=== PATIENT | female | born 1995 | race Caucasian/White ===

== ENCOUNTER 2021-02-26 21:00 | Inpatient (IN) | payer OTHER, SELFPAY ==
[2021-02-26] VITALS (16 sets, daily range): BP systolic 125–150; BP diastolic 61–88; PULSE 62–101; RESP 15–16; O2SAT 99–100
[2021-02-26 21:08] LABS: Basophils % 0.3 %; Eosinophils % 0.2 %; Hematocrit 45.3 % (37.0-47.0); Hemoglobin 15.7 g/dL (11.5-15.3); Lymphocytes # 0.6 10^3/uL (0.8-4.8); Lymphocytes % 5.7 %; Mean Corpuscular HGB Conc 34.7 g/dL (30.0-36.0); Mean Corpuscular Hemoglobin 30.1 pg (28.0-34.0); Mean Corpuscular Volume 86.8 fl (81-99); Mean Platelet Volume 12.3 fL (7.4-10.4); Monocytes # 0.5 10^3/uL (0.2-0.9); Monocytes % 4.7 %; Neutrophils # 9.09 10^3/uL (1.8-7.7); Neutrophils % 88.5 %; Nucleated Red Blood Cells % 0 %; Platelet Count 127 10^3/cmm (130-400); Red Blood Count 5.22 10^6/uL (4.1-5.3); White Blood Count 10.3 10^3/uL (4.0-10.0)
--- NOTE | 2021-02-26 21:55 | P.ANESASSM_ITS ---
Pre-Anesthetic Assessment Pre-Anesthetic Assessment: Height/Weight: Pulse BP 64 150/72 02/26/21 21:06 02/26/21 21:06 Was Beta Dontrell taken within 24 hours: N/A Was Clonidine taken within 24 hours: N/A Social: Social History: No alcohol and No tobacco Exam: Pre-Anes Outpt Exam: alert, oriented x 3, clear to auscultation bilatera lly and regular rate & rhythm Airway: Submandibular: WNL Cervical ROM: WNL MP: 2 Dentition: Full Anesthetic Plan: ASA status: 2E Anesthesia: General (RSI) Other: Bleeding, abruption? stat C/S Risk of > 500 ml blood loss (7ml/kg in children): Yes, adequate IV access and fluids planned Data Anesthesia CBC & Chem 7: 02/26/21 20:50 Other Labs: Laboratory Results - last 48 hr 02/26/21 02/26/21 20:50 20:50 WBC 10.3 H RBC 5.22 Hgb 15.7 H Hct 45.3 MCV 86.8 MCH 30.1 MCHC 34.7 RDW 13.0 Plt Count 127 L MPV 12.3 H Neut % (Auto) 88.5 Lymph % (Auto) 5.7 [place] % (Auto) 4.7 Eos % (Auto) 0.2 Baso % (Auto) 0.3 Neut # (Auto) 9.09 H Lymph # (Auto) 0.6 L [place] # (Auto) 0.5 Eos # (Auto) 0.0 Baso # (Auto) 0.0 Nucleated RBC % (auto) 0 Nucleated RBCs # 0.0 Blood Type A Positive Rho(D) Type Positive Cardiac Studies: No Data to Display
--- NOTE | 2021-02-26 22:02 | PM.OBGYHP ---
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 Her EDC was 03/13/2021. She has been followed through this by a electric operator. Her blood type is A positive with negative antibodies. She is also immune to Rubella and has had no problems with this . She began magalys at around 9AM this morning and began having vaginal bleeding since around 2PM this afternoon. The bleeding worsened and she was sent to the [facility] OB department. She arrived and was placed on the monitor at around 850PM. She continued to bleed and this physician was called. She then had several late decelerations and a decision was made to proceed with a section. Dr. Moyer was consulted for this. Review of Systems Const: Reports: change in appetite; Denies: fever(s) Eyes: Denies: change in vision ENMT: Denies: nasal congestion Card: Denies: chest pain, palpitations or edema Resp: Denies: dyspnea or productive cough GI: Reports: abdominal pain (ssuprapubic pain and contractions.) and vomiting (at around 7PM after drinking broth.); Denies: diarrhea or constipation : Reports: vaginal bleeding (moderate with cramps.) Musc: Reports: back pain Skin/Breast: Denies: rash Neuro: Denies: headache(s) or weakness in extremities Psych: Reports: anxiety; Denies: depression Beto/Lymph: Denies: easy bruising Vitals/I&O/Wt Last Vital Signs Pulse 64 02/26/21 21:06 BP 150/72 02/26/21 21:06 Physical Exam Const: COMMON NORMALS: no acute distress (obviously in pain.) GENERAL APPEARANCE: cooperative and ill appearing HENMT: COMMON NORMALS: moist oral mucous membranes Resp: COMMON NORMALS: normal respiratory effort, No retractions, No use of accessory muscles and clear to auscultation bilaterally Cardio: COMMON NORMALS: regular rate, regular rhythm and No murmurs present (Cardio) GI: COMMON NORMALS: Soft to palpation PALPATION: Yes Tenderness to palpation present (GI) (suprapubic pain ) : COMMON NORMALS: No normal external appearance (vaginal bleeding) Back/Pelvis: COMMON NORMALS: no CVA tenderness Extremity: COMMON NORMALS: normal to inspection, capillary refill normal, no clubbing, cyanosis or edema and no calf tenderness Neuro: SENSORIUM/ORIENTATION: Yes alert, Yes oriented to person and Yes oriented to place Psych: APPEARANCE: Yes grossly normal MOOD & AFFECT: Yes anxious Skin: COMMON NORMALS: no rashes or lesions noted Data : 02/26/21 20:50 A&P Assessment and plan (1) 37 or more weeks gestation of : plan probable due to possible abruption at near term. Status: Acute (2) Vaginal bleeding during , antepartum: suspect abruption. Status: Acute (3) Non-reassuring electronic monitoring tracing: Plan Cesarian section. Dr. Moyer consulted. Status: Acute Attestations Medical Necessity Statement*: This patient has a near term with probable abruption. She requires hospitalization with probable section and at least 2 midnight hospital stay. Time Spent in Patient Care: 16 - 35 minutes Coding Level of Care Code Acute Doors Prefitter for Chg Fwd Diagnoses 37 or more weeks gestation of Vaginal bleeding during , antepartum O46.90 Non-reassuring electronic monitoring tracing O36.8390
--- NOTE | 2021-02-26 22:32 | PM.OP ---
Operative Report Date of procedure: February 26, 2021 Pre-op Diagnosis: 25-year-old 1 female presenting with vaginal bleeding and nonreassu Post-op diagnosis: same Post-op Findings: Old clot in uterus consistent with abruption Procedure Done: Stat lower transverse section. Specimens removed/disposition: 1. Male with Apgars of 8 and 9 and weight of 7 pounds 2 ounces 2. Placenta with a three-vessel cord delivered intact. Old clots were noted on the placenta Pathology: none sent Surgeon: Graeme Moyer Sap Administrator: Bong Osorio Anesthesia: General Estimated blood loss (mL): 800 Condition: stable Disposition: floor (Obstetric) Procedure: The patient was brought back to the operating room where she was prepped and draped in usual sterile fashion. She was then placed under general anesthesia. A lower transverse skin incision was then made with a #10 blade. I then dissected down to the underlying subcutaneous tissue until arriving at the prerectal fascia. The fascia was then nicked with the scalpel bilaterally. The fascial incisions were then carried laterally with Guillen scissors. Attention was then turned to the superior aspect of the incision which was grasped with kochers and tented up away from the underlying rectus abdominis muscles. The muscles were then dissected away from the fascia manually, and later with Guillen scissors. Attention was then turned to the inferior aspect of the incision, and the fascia was dissected away from the underlying muscle in similar fashion. The rectus abdominis muscles were then spread manually. The peritoneum was entered manually. Excellent visualization of the uterus was noted. A lower transverse uterine incision was then made with a #10 blade. Upon arriving at the intrauterine cavity, the uterine incision was then extended manually. Multiple large dark blood clots were removed. The amniotic sac was ruptured with Allises and was noted to have clear fluid. The infant was noted to be in vertex position. The baby was delivered without difficulty. . There was no meconium. There was no nuchal cord. The cord was cut and clamped. The baby was then handed to the waiting nurse. The placenta was removed intact. The uterus was externalized. The intrauterine cavity was cleansed of any remaining debris. The uterine incision was reapproximated in 2 layers. The first layer was performed with 0 Vicryl in a running locked stitch. The second layer was an imbricating stitch also using 0 Vicryl. The uterus was replaced into the abdomen. The peritoneum was then irrigated with warm saline. I reexamined the uterine incision and found it to be hemostatic. The rectus abdominis muscles were then reapproximated using 0 Vicryl in a running stitch. The fascia was then reapproximated using 0 Vicryl in running stitch. The subcutaneous tissue was then reapproximated in a running stitch with 0 Vicryl. The skin was reapproximated using lexus. A sterile dressing was placed. All counts were correct x2. Both the mother and baby were in stable condition. Associated Problem List Diagnoses (1) Non-reassuring electronic monitoring tracing: (2) Vaginal bleeding during , antepartum: (3) 37 or more weeks gestation of : (4) Status post :
[2021-02-26] MEDS: morphine 4 mg/mL SDV 1 mL IVP (23:44)
[2021-02-26] MEDS: ketorolac 30 mg/mL INJ IVP (23:44)
[2021-02-27] VITALS (22 sets, daily range): BP systolic 101–127; BP diastolic 58–82; PULSE 68–89; RESP 15–16; TEMP 36.4–36.6; O2SAT 97–100; BMI 26.1
[2021-02-27] MEDS: dextrose 5%-lactated ringers 1,000 ML 125 ML IV ×2 (02:42→11:02)
[2021-02-27] MEDS: morphine 4 mg/mL SDV 1 mL IVP (03:30)
[2021-02-27] MEDS: lanolin oint 7 gm 1 APPLIC TOPICAL (03:31)
[2021-02-27] MEDS: ketorolac 30 mg/mL INJ IVP ×2 (06:15→11:02)
--- NOTE | 2021-02-27 07:03 | PM.OBGYPN ---
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 Her pain is well controlled. Her bleeding is minimal. Vitals/I&O/Wt Last Vital Signs Temp 97.9 F 02/27/21 04:13 Pulse 76 02/27/21 04:13 Resp 15 02/27/21 04:13 BP 116/68 02/27/21 04:13 Pulse Ox 100 02/26/21 22:50 02/26/21 02/27/21 02/27/21 22:59 06:59 14:59 Intake Total 1800 / 1800 Output Total 1550 / 1550 Balance 250 / 250 Weight last 48 hrs Weight 152 lb Physical Exam Narrative: EXAM NARRATIVE: She is in no acute distress Lungs are clear auscultation bilaterally Her heart has a regular rate and rhythm Her fundus is below the umbilicus and firm Her dressing is clean, dry and intact Her extremities have trace edema Urinary Catheter Management^: Mahmood Latex: Cath Placed During This Visit: yes Urinary Catheter Date of Insertion: 02/26/21 Urinary Catheter Time of Insertion: 21:20 Data : 02/26/21 20:50 A&P Assessment and plan (1) Status post : The patient appears to be doing well post . She is breast-feeding well. Her bleeding is within normal limits. Her pain is well controlled. I anticipate she will be discharged home tomorrow. Status: Acute Attestations Medical Necessity Statement*: Routine post care Coding Level of Care Code Acute Knife Machine Operator for Chg Fwd Diagnoses Status post Z98.891
[2021-02-27] MEDS: HYDROcodone-acetaminophen 5-325 mg Tablet PO (08:44)
[2021-02-27] MEDS: prenatal vitamin Capsule 1 CAP PO (08:45)
[2021-02-27] MEDS: docusate sodium 100 mg Capsule PO ×2 (08:45→18:17)
--- NOTE | 2021-02-27 08:53 | ANE.PACU2 ---
Inpatient post-anesthesia follow up: Airway intact: Yes Vital signs: Temperature 97.9 F Pulse Rate 76 Respiratory Rate 15 Blood Pressure 116/68 Pulse Oximetry 100 Oxygen Delivery Me thod Room Air Oxygen Flow Rate Fraction of Inspir ed Oxygen Hydration adequate: Yes Nausea and vomiting: No Pain level: 2 Mental status: Baseline
[2021-02-27 10:28] LABS: Hematocrit 31.8 % (37.0-47.0); Mean Corpuscular HGB Conc 34.6 g/dL (30.0-36.0); Mean Corpuscular Hemoglobin 30.2 pg (28.0-34.0); Mean Corpuscular Volume 87.4 fl (81-99); Mean Platelet Volume 12.1 fL (7.4-10.4); Platelet Count 71 10^3/cmm (130-400); Red Blood Count 3.64 10^6/uL (4.1-5.3); Red Cell Distribution Width 13.2 % (12.1-15.1); White Blood Count 11.8 10^3/uL (4.0-10.0)
--- NOTE | 2021-02-27 10:54 | PC.NURSE ---
Call to Dr. Moyer to report pt lab result. Plt count dropped from 127 to 71, hemaglobin dropped from 15.7 to 11.0. Received orders to repeat CBC at 1600.
--- NOTE | 2021-02-27 15:26 | PC.NURSE ---
Pt ambulated one lap around unit. Pt tolerated well.
[2021-02-27 16:20] LABS: Basophils % 0.2 %; Hemoglobin 11.5 g/dL (11.5-15.3); Lymphocytes # 0.9 10^3/uL (0.8-4.8); Lymphocytes % 7.6 %; Mean Corpuscular HGB Conc 34.8 g/dL (30.0-36.0); Mean Corpuscular Hemoglobin 30.4 pg (28.0-34.0); Mean Corpuscular Volume 87.3 fl (81-99); Mean Platelet Volume 12.6 fL (7.4-10.4); Monocytes # 0.6 10^3/uL (0.2-0.9); Monocytes % 4.5 %; Neutrophils # 10.62 10^3/uL (1.8-7.7); Neutrophils % 87.2 %; Nucleated Red Blood Cells % 0 %; Platelet Count 101 10^3/cmm (130-400); Red Blood Count 3.78 10^6/uL (4.1-5.3); Red Cell Distribution Width 13.4 % (12.1-15.1); White Blood Count 12.2 10^3/uL (4.0-10.0)
--- NOTE | 2021-02-27 16:53 | PC.NURSE ---
Call to Dr. Moyer to report CBC results. Plt count went from 71 to 101 and hgb went from 11.0 to 11.5. No new orders received.
[2021-02-27] MEDS: ibuprofen 800 mg tablet PO (21:27)
[2021-02-28] MEDS: acetaminophen 325 mg Tablet 650 MG PO (00:25)
[2021-02-28 04:00] VITALS: BP 104/65; PULSE 71; TEMP 36.6; O2SAT 99
--- NOTE | 2021-02-28 08:00 | PM.OBGYDC ---
Discharge Providers SENIOR ELECTRONICS TECHNICIAN Date of Admission: 02/26/21 21:00 Date of Discharge: 02/28/21 Attending Provider at Admission: Bong Osorio MD Attending Provider at Discharge: Bong Osorio MD Primary Care Provider: Cachorro Saldana Diagnoses at Discharge Discharge Diagnosis (1) Status post : Status: Acute Reason for Visit Reason for Visit: BLEEDING Hospital Course Hospital Course The patient had in labor under the care of a beamer hand At home. She began having large amounts of vaginal bleeding. This lasted for several hours. She was brought to the OB department where she was found to have nonreassuring heart tones. An emergency was performed. The patient's case was were largely unremarkable. Her platelets did drop down to 70,000, but later rebounded to over 100,000. Her pain was well controlled. Her bleeding was within normal limits. She is having difficulty with breast-feeding. legal document specialist has been assisting her. Information Peripartum Data: Delivery Method: Physical Exam Narrative: EXAM NARRATIVE: She is in no acute distress Lungs are clear auscultation bilaterally Her heart has a regular rate and rhythm Her fundus is below the umbilicus and firm Her dressing is clean, dry and intact Her extremities have trace edema Urinary Catheter Management^: Mahmood Latex: Cath Placed During This Visit: yes, but has since been removed by the nurse Reason for Continuing Indwelling Catheter: Decision to DC Catheter Urinary Catheter Date of Insertion: 02/26/21 Urinary Catheter Time of Insertion: 21:20 Date Urinary Catheter Removed: 02/27/21 Time Urinary Catheter Discontinued: 15:30 Discharge Data Data Completed and Pending: Labs from last 24 hours 02/27/21 02/27/21 16:01 09:55 WBC 12.2 H 11.8 H RBC 3.78 L 3.64 L Hgb 11.5 11.0 L Hct 33.0 L 31.8 L MCV 87.3 87.4 MCH 30.4 30.2 MCHC 34.8 34.6 RDW 13.4 13.2 Plt Count 101 L D 71 L D MPV 12.6 H 12.1 H Neut % (Auto) 87.2 Lymph % (Auto) 7.6 [place] % (Auto) 4.5 Eos % (Auto) 0.0 Baso % (Auto) 0.2 Neut # (Auto) 10.62 H Lymph # (Auto) 0.9 [place] # (Auto) 0.6 Eos # (Auto) 0.0 Baso # (Auto) 0.0 Nucleated RBC % (a uto) 0 Nucleated RBCs # 0.0 Vitals: Last Vital Signs Temp 97.9 F 02/28/21 04:00 Pulse 71 02/28/21 04:00 Resp 16 02/27/21 16:03 BP 104/65 02/28/21 04:00 Pulse Ox 99 02/28/21 04:00 Discharge Plan Discharge Patient Disposition: Home Condition: Stable Prescriptions: New ibuprofen 800 mg Tablet 800 mg PO TID Qty: 45 RF: 0 hydrocodone-acetaminophen 5-325 mg Tablet 1 tab PO Q4H PRN (Reason: Moderate To Severe Pain) Qty: 28 RF: 0 docusate sodium 100 mg Capsule 100 mg PO BID Qty: 14 RF: 0 -U 106.5-1 mg Capsule 1 cap PO BREAKFAST Qty: 90 RF: 0 Discharge Orders: Discharge Order (Routine); Ordered 02/28/21 Ordered By: Graeme Moyer Referrals: Graeme Moyer MD [Physician] - 4-7 days Discharge Diet: Usual diet Discharge Activity: Limit activity as instructed Patient Instructions: Opioid Safety Discharge Attestations SENIOR ELECTRONICS TECHNICIAN Time Spent in Discharge Care*: less than 30 min Specific Discharge Activities: Specific discharge activities: educating patient and educating and/or supporting family/caregiver Coding Level of Care Code Acute Coding Clerks Supervisor for Aggie Patel Diagnoses Status post Z98.891
[2021-02-28] MEDS: prenatal vitamin Capsule 1 CAP PO (09:20)
[2021-02-28] MEDS: ibuprofen 800 mg tablet PO ×2 (09:21→17:07)
[2021-02-28] MEDS: docusate sodium 100 mg Capsule PO ×2 (09:21→17:06)
[2021-02-28] MEDS: HYDROcodone-acetaminophen 5-325 mg Tablet PO ×2 (10:28→17:07)
[2021-02-28 10:40] VITALS: BP 111/70; PULSE 89; RESP 16; TEMP 36.6; O2SAT 98
[2021-02-28 13:39] LABS: SARS Covid-2 Antigen Positive (Negative)
[2021-02-28 15:04] LABS: Adenovirus Not Detected (NOT DETECT); Chlamydia Pneumoniae Not Detected (NOT DETECT); Coronavirus 229E,HKU1,NL63,OC4 Not Detected (NOT DETECT); Human Metapneumovirus Not Detected (NOT DETECT); Human Rhinovirus/Enterovirus Not Detected (NOT DETECT); Influenza A Not Detected (NOT DETECT); Influenza A H1 Not Detected (NOT DETECT); Influenza A H1-2009 Not Detected (NOT DETECT); Influenza A H3 Not Detected (NOT DETECT); Influenza B Not Detected (NOT DETECT); Mycoplasma Pneumoniae Not Detected (NOT DETECT); Parainfluenza Virus Type 1 Not Detected (NOT DETECT); Parainfluenza Virus Type 2 Not Detected (NOT DETECT); Parainfluenza Virus Type 3 Not Detected (NOT DETECT); Parainfluenza Virus Type 4 Not Detected (NOT DETECT); Respiratory Syncytial Virus A Not Detected (NOT DETECT); Respiratory Syncytial Virus B Not Detected (NOT DETECT); SARS-COV-2 Detected (NOT DETECT)
[2021-02-28 17:04] VITALS: BP 118/79; PULSE 91; RESP 16; TEMP 36.4
[2021-02-28] MEDS: ferrous sulfate EC 325 mg Tablet PO (17:08)
[2021-02-28 20:15] VITALS: BP 123/76; PULSE 86; RESP 16; O2SAT 98
== END 2021-02-28 20:45 | disposition home or self-care (01) | DRG 788 ==
LOC: OPOB 22:44 → OBGYN 22:44
PROVIDERS: Family Medicine; Admitting Provider Family Medicine; Family Provider Nurse Practitioner Family; PCP Nurse Practitioner Family; Visit Provider Family Medicine
PROC: (CPT 59514; principal; 2021-02-27 21:10)
DX: O45.93 Premature separation of placenta, unspecified, third trimester (principal); Z3A.37 37 weeks gestation of pregnancy; Z37.0 Single live birth; O76 Abnormality in fetal heart rate and rhythm complicating labor and delivery
CPT/HCPCS: 12345; 36415; 51702; 85025; 85027; 86850; 86900; 87426; 87635; 98960; 99211; J1885; J2270; J2405; J3010